=== PATIENT | male | born 1985 | race Caucasian/White ===

== ENCOUNTER 2025-02-07 17:27 | Emergency (ER) | payer BC ==
[~2025-02-07] VITALS: Ht 185.4 cm; Wt 106.8 kg
[2025-02-07 17:29] VITALS: TEMP 97.1
[2025-02-07] MEDS ORDERED: CYCL-707 (17:34)
[2025-02-07 22:54] VITALS: BP 132/88; O2SAT 97
[2025-02-07] MEDS ORDERED: KETO-204 PO (23:00)
== END 2025-02-07 23:04 | disposition home or self-care (01) ==
LOC: M ED 17:27
DX: M54.42 Lumbago with sciatica, left side (principal); Z88.0 Allergy status to penicillin; Z88.1 Allergy status to other antibiotic agents; Z88.2 Allergy status to sulfonamides